=== PATIENT | male | born 1945 | race Caucasian/White ===

== ENCOUNTER 2022-03-17 15:14 | Emergency (ER) | payer MEDICAID, MEDICARE, OTHER ==
[2022-03-17] MEDS ORDERED: Sodium Chloride 0.9% 10 ML Syringe FLUSH PRN (15:36)
[2022-03-17 16:08] LABS: ANION GAP 12.8 mmol/L (5-15); CHLORIDE,CL 91 mmol/L (98-107); SODIUM,NA 132 mmol/L (136-145)
[2022-03-17 16:20] LABS: ESTIMATED GFR 30 mL/min (>=60)
== END 2022-03-17 20:25 ==
LOC: KA.ED 15:14
DX: R00.1 Bradycardia, unspecified (principal); I48.91 Unspecified atrial fibrillation; E11.9 Type 2 diabetes mellitus without complications; I25.10 Atherosclerotic heart disease of native coronary artery without angina pectoris; Z79.82 Long term (current) use of aspirin; Z79.01 Long term (current) use of anticoagulants; Z79.899 Other long term (current) drug therapy; Z95.1 Presence of aortocoronary bypass graft
CPT/HCPCS: 36415; 71045; 80053; 84484; 85025; 93010; 99284; 99285

== ENCOUNTER 2022-11-07 14:41 | Inpatient (IN) | payer MEDICARE ==
[2022-11-07 15:01] LABS: BASOPHILS ABSOLUTE AUTO 0.04 10^3/uL (0.00-0.10); BASOPHILS PERCENT AUTO 0.4 % (0.0-1.0); EOSINOPHILS ABSOLUTE AUTO 0.17 10^3/uL (0.10-0.30); EOSINOPHILS PERCENT AUTO 1.6 % (1.0-3.0); HEMATOCRIT 28.7 % (40.0-52.0); HEMOGLOBIN 8.5 g/dL (13.0-17.0); IMMATURE GRAN ABSOLUTE AUTO 0.04 10^3/uL (0.00-0.50); IMMATURE GRAN PERCENT AUTO 0.4 % (0.0-5.0); LYMPHOCYTES ABSOLUTE AUTO 1.06 10^3/uL (1.00-4.00); MEAN CORPUSCULAR HEMOGLOBIN 31.8 pg (27.0-31.0); MEAN CORPUSCULAR HGB CONC 29.6 g/dL (32.0-36.0); MEAN CORPUSCULAR VOLUME 107.5 fL (82.0-92.0); MEAN PLATELET VOLUME 9.8 fL (7.4-10.4); MONOCYTES ABSOLUTE AUTO 1.03 10^3/uL (0.10-0.80); MONOCYTES PERCENT AUTO 9.7 % (2.0-8.0); NEUTROPHILS ABSOLUTE AUTO 8.25 10^3/uL (2.50-7.00); NEUTROPHILS PERCENT AUTO 77.9 % (50.0-70.0); PLATELET COUNT,PLT 314 10^3/uL (150-400); RED BLOOD CELL COUNT 2.67 10^6/uL (4.50-6.00); RED CELL DISTRIBUTION WIDTH 20.9 % (11.5-14.5); WHITE BLOOD CELL COUNT,WBC 10.59 10^3/uL (5.00-10.00)
[2022-11-07] MEDS ORDERED: Furosemide 40 MG/4 ML VIAL IVPUSH ONE (15:01)
[2022-11-07 15:19] LABS: ALBUMIN 3.02 g/dL (3.40-5.00); ANION GAP 11.4 mmol/L (5-15); BILIRUBIN TOTAL 0.2 mg/dL (0.2-1.0); CALCIUM 7.9 mg/dL (8.7-10.3); CARBON DIOXIDE,CO2 32.4 mmol/L (21.0-32.0); CREATININE 1.99 mg/dL (0.51-1.17); EST CRCL DRUG DOSING (CG) 24.22 mL/min; POTASSIUM,K 3.8 mmol/L (3.5-5.1); PROTEIN TOTAL,TP 6.5 g/dL (6.4-8.2)
[2022-11-07] MEDS ORDERED: Bumetanide 1 MG/4 ML MDV IVPUSH ONE (18:10)
[2022-11-07] MEDS ORDERED: Acetaminophen 325 MG Tab PO PRN (18:33)
[2022-11-07] MEDS ORDERED: Sennosides/Docusate Sodium 50-8.6 MG Tab PO PRN (18:33)
[2022-11-07] MEDS ORDERED: Warfarin 5 MG Tab PO SCH (18:45)
[2022-11-07] MEDS ORDERED: Warfarin 2.5 MG Tab PO SCH (18:45)
[2022-11-07] MEDS ORDERED: Rosuvastatin 10 MG Tab PO SCH (21:00)
[2022-11-07] MEDS: Nystatin Topical Powder 15 GM Bottle TOP SCH (21:03)
[2022-11-07 21:06] LABS: INR 3.8 (0.9-1.1); PROTHROMBIN TIME 35.8 SEC (9.2-11.2)
[2022-11-08 07:15] LABS: BASOPHILS ABSOLUTE AUTO 0.02 10^3/uL (0.00-0.10); BASOPHILS PERCENT AUTO 0.2 % (0.0-1.0); EOSINOPHILS ABSOLUTE AUTO 0.28 10^3/uL (0.10-0.30); EOSINOPHILS PERCENT AUTO 2.6 % (1.0-3.0); HEMATOCRIT 27.3 % (40.0-52.0); HEMOGLOBIN 8.1 g/dL (13.0-17.0); IMMATURE GRAN ABSOLUTE AUTO 0.02 10^3/uL (0.00-0.50); IMMATURE GRAN PERCENT AUTO 0.2 % (0.0-5.0); LYMPHOCYTES ABSOLUTE AUTO 1.58 10^3/uL (1.00-4.00); LYMPHOCYTES PERCENT AUTO 14.5 % (20.0-40.0); MEAN CORPUSCULAR HEMOGLOBIN 31.2 pg (27.0-31.0); MEAN CORPUSCULAR HGB CONC 29.7 g/dL (32.0-36.0); MEAN PLATELET VOLUME 9.6 fL (7.4-10.4); MONOCYTES ABSOLUTE AUTO 0.93 10^3/uL (0.10-0.80); MONOCYTES PERCENT AUTO 8.5 % (2.0-8.0); NEUTROPHILS ABSOLUTE AUTO 8.05 10^3/uL (2.50-7.00); PLATELET COUNT,PLT 301 10^3/uL (150-400); RED CELL DISTRIBUTION WIDTH 20.6 % (11.5-14.5); WHITE BLOOD CELL COUNT,WBC 10.88 10^3/uL (5.00-10.00)
[2022-11-08 07:40] LABS: ALBUMIN 2.87 g/dL (3.40-5.00); ANION GAP 10.6 mmol/L (5-15); BILIRUBIN TOTAL 0.3 mg/dL (0.2-1.0); CARBON DIOXIDE,CO2 32.4 mmol/L (21.0-32.0); CREATININE 1.83 mg/dL (0.51-1.17); EST CRCL DRUG DOSING (CG) 26.34 mL/min; MAGNESIUM 2.1 mg/dL (1.8-2.4); PROTEIN TOTAL,TP 6.2 g/dL (6.4-8.2); TSH ULTRASENSITIVE 1.831 uIU/mL (0.340-4.820)
[2022-11-08] MEDS ORDERED: Metoprolol Succinate 25 MG Tab.ER PO SCH (09:00)
[2022-11-08] MEDS ORDERED: Aspirin 81 MG Tab.Chew PO SCH (09:00)
[2022-11-08] MEDS ORDERED: Amiodarone 200 MG Tab PO SCH (09:00)
[2022-11-08] MEDS ORDERED: OLANZapine 5 MG Tab PO SCH (09:00)
[2022-11-08] MEDS ORDERED: Venlafaxine 37.5 MG Cap.ER PO SCH (09:00)
[2022-11-08 09:04] LABS: INR 3.3 (0.9-1.1)
[2022-11-08] MEDS: Nystatin Topical Powder 15 GM Bottle TOP SCH (10:35)
[2022-11-08] MEDS ORDERED: Bumetanide 1 MG/4 ML MDV IVPUSH ONE (11:26)
[2022-11-08] MEDS ORDERED: Spironolactone 25 MG Tab PO SCH (11:30)
[2022-11-08] MEDS ORDERED: Potassium Chloride 20 MEQ Tab.ER PO SCH (12:00)
[2022-11-08] MEDS ORDERED: Albuterol 0.083% 2.5 MG/3 ML Neb Soln NEB ONE (13:09)
[2022-11-08 15:08] VITALS: BP 106/51; PULSE 85
== END 2022-11-08 15:17 | DRG 293 ==
LOC: KA.ED 14:41 → KA.MS 16:11
PROVIDERS: ADMIT Nurse Practitioner Family; ATTEND Family Medicine
DX: I11.0 Hypertensive heart disease with heart failure (principal); I50.9 Heart failure, unspecified; E87.79 Other fluid overload; I48.91 Unspecified atrial fibrillation; I42.9 Cardiomyopathy, unspecified; E78.5 Hyperlipidemia, unspecified; E87.6 Hypokalemia; D64.9 Anemia, unspecified; E11.9 Type 2 diabetes mellitus without complications; G47.33 Obstructive sleep apnea (adult) (pediatric); M19.90 Unspecified osteoarthritis, unspecified site; Z66 Do not resuscitate; F39 Unspecified mood [affective] disorder; N32.81 Overactive bladder; I25.10 Atherosclerotic heart disease of native coronary artery without angina pectoris; N40.0 Benign prostatic hyperplasia without lower urinary tract symptoms; E78.00 Pure hypercholesterolemia, unspecified; K21.9 Gastro-esophageal reflux disease without esophagitis; Z95.1 Presence of aortocoronary bypass graft; Z79.01 Long term (current) use of anticoagulants; Z79.51 Long term (current) use of inhaled steroids; Z98.890 Other specified postprocedural states; I25.2 Old myocardial infarction; Z95.5 Presence of coronary angioplasty implant and graft; Z79.82 Long term (current) use of aspirin; Z79.899 Other long term (current) drug therapy; Z95.2 Presence of prosthetic heart valve
CPT/HCPCS: 36415; 36416; 51702; 71045; 80053; 83735; 83880; 84443; 84484; 85025; 85610; 93005; 93010; 96374; 99284; 99285-25; A9270-GY; J1940; J3490; J7613-GY

== ENCOUNTER 2022-12-07 05:05 | Emergency (ER) | payer MEDICARE, MEDICAID ==
[2022-12-07] MEDS ORDERED: Bacitracin/Neomycin/Polymyxin B Oint 0.9 GM U/D Packet ONE (06:10)
[2022-12-07] MEDS ORDERED: Bacitracin/Neomycin/Polymyxin B Oint 0.9 GM U/D Packet TOP ONE (06:11)
[2022-12-07] MEDS ORDERED: Diphtheria,Pertussis(Acell),Tetanus Vaccine 0.5 ML Syringe IM ONE (06:12)
[2022-12-07 07:06] VITALS: PULSE 74
[2022-12-07 08:32] VITALS: BP 116/78
== END 2022-12-07 09:25 ==
LOC: KA.ED 05:05
DX: S01.01XA Laceration without foreign body of scalp, initial encounter (principal); I48.91 Unspecified atrial fibrillation; I25.10 Atherosclerotic heart disease of native coronary artery without angina pectoris; I11.0 Hypertensive heart disease with heart failure; I50.9 Heart failure, unspecified; I25.2 Old myocardial infarction; E78.00 Pure hypercholesterolemia, unspecified; K21.9 Gastro-esophageal reflux disease without esophagitis; E11.9 Type 2 diabetes mellitus without complications; Z95.5 Presence of coronary angioplasty implant and graft; M19.90 Unspecified osteoarthritis, unspecified site; Z79.01 Long term (current) use of anticoagulants; Z79.82 Long term (current) use of aspirin; Z79.899 Other long term (current) drug therapy; W19.XXXA Unspecified fall, initial encounter; Y92.129 Unspecified place in nursing home as the place of occurrence of the external cause
CPT/HCPCS: 12002; 70450; 72125; 73590-RT; 90471; 90715; 99283; 99284-25

== ENCOUNTER 2022-12-08 11:45 | Emergency (ER) | payer MEDICARE, MEDICAID ==
[2022-12-08 12:08] LABS: BASOPHILS ABSOLUTE AUTO 0.03 10^3/uL (0.00-0.10); BASOPHILS PERCENT AUTO 0.4 % (0.0-1.0); EOSINOPHILS PERCENT AUTO 2.4 % (1.0-3.0); HEMATOCRIT 34.9 % (40.0-52.0); HEMOGLOBIN 10.3 g/dL (13.0-17.0); IMMATURE GRAN ABSOLUTE AUTO 0.02 10^3/uL (0.00-0.50); IMMATURE GRAN PERCENT AUTO 0.2 % (0.0-5.0); LYMPHOCYTES ABSOLUTE AUTO 0.97 10^3/uL (1.00-4.00); LYMPHOCYTES PERCENT AUTO 11.8 % (20.0-40.0); MEAN CORPUSCULAR HEMOGLOBIN 28.2 pg (27.0-31.0); MEAN CORPUSCULAR HGB CONC 29.5 g/dL (32.0-36.0); MEAN CORPUSCULAR VOLUME 95.6 fL (82.0-92.0); MEAN PLATELET VOLUME 9.6 fL (7.4-10.4); MONOCYTES ABSOLUTE AUTO 0.88 10^3/uL (0.10-0.80); MONOCYTES PERCENT AUTO 10.7 % (2.0-8.0); NEUTROPHILS ABSOLUTE AUTO 6.12 10^3/uL (2.50-7.00); NEUTROPHILS PERCENT AUTO 74.5 % (50.0-70.0); PLATELET COUNT,PLT 263 10^3/uL (150-400); RED BLOOD CELL COUNT 3.65 10^6/uL (4.50-6.00); RED CELL DISTRIBUTION WIDTH 16.9 % (11.5-14.5); WHITE BLOOD CELL COUNT,WBC 8.22 10^3/uL (5.00-10.00)
[2022-12-08 12:22] LABS: ANION GAP 11.7 mmol/L (5-15); CALCIUM 8.2 mg/dL (8.7-10.3); CREATININE 2.27 mg/dL (0.51-1.17); POTASSIUM,K 3.7 mmol/L (3.5-5.1)
[2022-12-08 12:42] LABS: EST CRCL DRUG DOSING (CG) 21.24 mL/min
[2022-12-08] MEDS ORDERED: Nystatin Topical Powder 15 GM Bottle TOP SCH (17:00)
== END 2022-12-08 14:30 ==
LOC: KA.ED 11:45
DX: J81.1 Chronic pulmonary edema (principal); R94.4 Abnormal results of kidney function studies; R79.89 Other specified abnormal findings of blood chemistry; B37.2 Candidiasis of skin and nail; I48.91 Unspecified atrial fibrillation; I10 Essential (primary) hypertension; E78.00 Pure hypercholesterolemia, unspecified; K21.9 Gastro-esophageal reflux disease without esophagitis; E11.9 Type 2 diabetes mellitus without complications; E66.9 Obesity, unspecified; Z68.41 Body mass index [BMI] 40.0-44.9, adult; Z79.899 Other long term (current) drug therapy; Z79.01 Long term (current) use of anticoagulants; Z95.1 Presence of aortocoronary bypass graft
CPT/HCPCS: 36415; 71045; 80048; 83880; 85025; 99284; 99285

== ENCOUNTER 2022-12-13 14:10 | Emergency (ER) | payer MEDICARE, MEDICAID ==
[2022-12-13 14:47] LABS: BASOPHILS ABSOLUTE AUTO 0.03 10^3/uL (0.00-0.10); BASOPHILS PERCENT AUTO 0.4 % (0.0-1.0); EOSINOPHILS ABSOLUTE AUTO 0.21 10^3/uL (0.10-0.30); EOSINOPHILS PERCENT AUTO 2.9 % (1.0-3.0); HEMATOCRIT 36.2 % (40.0-52.0); HEMOGLOBIN 10.8 g/dL (13.0-17.0); IMMATURE GRAN ABSOLUTE AUTO 0.02 10^3/uL (0.00-0.50); IMMATURE GRAN PERCENT AUTO 0.3 % (0.0-5.0); LYMPHOCYTES ABSOLUTE AUTO 0.85 10^3/uL (1.00-4.00); LYMPHOCYTES PERCENT AUTO 11.8 % (20.0-40.0); MEAN CORPUSCULAR HEMOGLOBIN 28.5 pg (27.0-31.0); MEAN CORPUSCULAR HGB CONC 29.8 g/dL (32.0-36.0); MEAN CORPUSCULAR VOLUME 95.5 fL (82.0-92.0); MEAN PLATELET VOLUME 9.9 fL (7.4-10.4); MONOCYTES ABSOLUTE AUTO 0.75 10^3/uL (0.10-0.80); MONOCYTES PERCENT AUTO 10.4 % (2.0-8.0); NEUTROPHILS ABSOLUTE AUTO 5.37 10^3/uL (2.50-7.00); NEUTROPHILS PERCENT AUTO 74.2 % (50.0-70.0); PLATELET COUNT,PLT 237 10^3/uL (150-400); RED BLOOD CELL COUNT 3.79 10^6/uL (4.50-6.00); WHITE BLOOD CELL COUNT,WBC 7.23 10^3/uL (5.00-10.00)
[2022-12-13 15:06] LABS: B-TYPE NATRIURETIC PEPTIDE,BNP 1170 pg/mL (0-100)
[2022-12-13 15:11] LABS: ALANINE AMINOTRANSFERASE,ALT 23 U/L (14-63); ALBUMIN 3.18 g/dL (3.40-5.00); ALKALINE PHOSPHATASE 82 U/L (46-116); ANION GAP 13.9 mmol/L (5-15); ASPARTATE AMNIOTRANSFERASE,AST 26 U/L (15-37); BILIRUBIN TOTAL 0.5 mg/dL (0.2-1.0); BLOOD UREA NITROGEN,BUN 49 mg/dL (7-18); CALCIUM 7.8 mg/dL (8.7-10.3); CARBON DIOXIDE,CO2 29.4 mmol/L (21.0-32.0); CHLORIDE,CL 102 mmol/L (98-107); CREATININE 1.85 mg/dL (0.51-1.17); GLUCOSE RANDOM 136 mg/dL (70-140); POTASSIUM,K 3.3 mmol/L (3.5-5.1); PROTEIN TOTAL,TP 7.2 g/dL (6.4-8.2); SODIUM,NA 142 mmol/L (136-145)
[2022-12-13 15:12] LABS: ESTIMATED GFR 37 mL/min (>=60)
[2022-12-13 15:29] LABS: INR 3.6 (0.9-1.1); PROTHROMBIN TIME 33.7 SEC (9.2-11.2); PTT,PARTIAL THROMBOPLSTIN TIME 40.1 SEC (22.8-31.4)
[2022-12-13] MEDS ORDERED: Furosemide 40 MG/4 ML VIAL IVPUSH ONE (15:44)
== END 2022-12-13 16:45 ==
LOC: KA.ED 14:10
DX: I13.0 Hypertensive heart and chronic kidney disease with heart failure and stage 1 through stage 4 chronic kidney disease, or unspecified chronic kidney disease (principal); E11.22 Type 2 diabetes mellitus with diabetic chronic kidney disease; N18.30 Chronic kidney disease, stage 3 unspecified; I50.9 Heart failure, unspecified; I48.91 Unspecified atrial fibrillation; I25.10 Atherosclerotic heart disease of native coronary artery without angina pectoris; E70.0 Classical phenylketonuria; I25.2 Old myocardial infarction; K21.9 Gastro-esophageal reflux disease without esophagitis; M19.90 Unspecified osteoarthritis, unspecified site; E66.9 Obesity, unspecified; Z79.01 Long term (current) use of anticoagulants; Z95.1 Presence of aortocoronary bypass graft; Z79.82 Long term (current) use of aspirin; Z79.51 Long term (current) use of inhaled steroids; Z79.899 Other long term (current) drug therapy; W06.XXXA Fall from bed, initial encounter
CPT/HCPCS: 70450; 71045; 72125; 80053; 83880; 84484; 85025; 85610; 85730; 93010; 96374; 99284; 99285-25; J1940